=== PATIENT | female | born 1950 | race Two or more races ===

== ENCOUNTER 2022-11-21 12:17 | Emergency (ER) | payer MEDICARE, OTHER ==
[~2022-11-21] VITALS: Ht 154.9 cm; Wt 70.4 kg
[2022-11-21 12:55] LABS: Urine Bacteria MANY /hpf (None Seen); Urine Blood 3+ /uL (Negative); Urine Mucus FEW (None Seen); Urine WBC 41 /hpf (0 - 5)
[2022-11-21] MEDS ORDERED: cefTRIAXone SOD 1,000 MG VL IM ONE (13:30)
[2022-11-21] MEDS ORDERED: PHENAZOPYRIDINE HCL 100 MG TAB PO ONE (13:30)
[2022-11-21 13:44] VITALS: BP 129/65
[2022-11-21] MEDS ORDERED: CIPR-173 PO (13:55)
[2022-11-21] MEDS ORDERED: PHEN200T16 PO (13:55)
== END 2022-11-21 13:57 | disposition home or self-care (01) ==
LOC: ER 12:17
DX: N39.0 Urinary tract infection, site not specified (principal); E11.9 Type 2 diabetes mellitus without complications; Z88.1 Allergy status to other antibiotic agents
CPT/HCPCS: 81001; 96372; 99283; J0696

== ENCOUNTER 2022-11-23 18:33 | Emergency (ER) | payer MEDICARE ==
[~2022-11-23] VITALS: Ht 154.9 cm; Wt 71.0 kg
[~2022-11-23 18:33] MED LIST: CIPR-173 PO; PHEN200T16 PO
[2022-11-24] MEDS ORDERED: HYDR-4902 PO (00:11)
[2022-11-24] MEDS ORDERED: ONDA-144 PO (00:13)
[2022-11-24] MEDS ORDERED: HYDROcodone-ACET 5/325MG TAB PO ONE (00:15)
[2022-11-24] MEDS ORDERED: ONDANSETRON ODT 4 MG TAB PO ONE (00:15)
[2022-11-24 00:16] VITALS: BP 132/72
== END 2022-11-24 23:50 | disposition home or self-care (01) ==
LOC: ER 18:33
DX: S52.592A Other fractures of lower end of left radius, initial encounter for closed fracture (principal); E11.9 Type 2 diabetes mellitus without complications; Z98.890 Other specified postprocedural states; W01.0XXA Fall on same level from slipping, tripping and stumbling without subsequent striking against object, initial encounter; Y93.89 Activity, other specified; Y92.89 Other specified places as the place of occurrence of the external cause; Y99.8 Other external cause status
CPT/HCPCS: 29125; 73110; 99283; Q0162